=== PATIENT | male | born 1970 | race Caucasian/White ===

== ENCOUNTER 2017-09-25 18:36 | Emergency (ER) | payer OTHER, MEDICAID ==
[2017-09-25] MEDS: ACETAMINOPHEN 500 MG TAB PO (20:14)
[2017-09-25] MEDS: IBUPROFEN 600 MG TAB PO (20:15)
== END 2017-09-25 21:13 | disposition home or self-care (01) ==
LOC: FTE 18:36
DX: R50.9 Fever, unspecified (principal); R05 Cough; J02.9 Acute pharyngitis, unspecified; R11.0 Nausea; Z87.891 Personal history of nicotine dependence
CPT/HCPCS: 99283; Z7502

== ENCOUNTER 2017-12-30 09:34 | Emergency (ER) | payer OTHER ==
[2017-12-30] MEDS: HYDROCODONE/APAP (5/325) TAB PO (10:28)
[2017-12-30] MEDS: KETOROLAC 60 MG INJ IM (10:28)
== END 2017-12-30 12:00 | disposition home or self-care (01) ==
LOC: FTE 09:34
DX: M54.5 Low back pain (principal); Z87.891 Personal history of nicotine dependence
CPT/HCPCS: 72100; 96372; 99284-25